=== PATIENT | female | born 1940 | race Caucasian/White ===

== ENCOUNTER 2017-10-04 22:13 | Emergency (ER) | payer OTHER ==
[2017-10-04] MEDS ORDERED: IPRATROPIUM/ALBUTEROL 3 ML DEYVIAL IH ONE (22:27)
--- NOTE | 2017-10-04 22:30 | EDPHY ---
Addendum entered and electronically signed by Trevor Brooks MD 10/05/17 22:52 : Additional info, late entry Pt to hold ADY valdovinos on the Vantin/Zithromax. Original Note: H & P <Trevor Brooks - Last Filed: 10/05/17 01:45> Source: Patient, Family Exam Limitations: No limitations - Medical/Surgical History Hx Asthma: No Hx Chronic Respiratory Disease: No Hx Diabetes: No Hx Cardiac Disease: Yes Hx Renal Disease: No Hx Cirrhosis: No Hx Alcoholism: No - Family History Significant Family History: No pertinent family hx - Social History Smoking Status: Former smoker Alcohol Use: None <Hero Vicente - Last Filed: 10/06/17 07:03> Time Seen by Provider: 10/04/17 22:21 HPI/ROS: CHIEF COMPLAINT: Cough HISTORY OF PRESENT ILLNESS: Patient is a 76-year-old female visiting from [place] with a history of mild dementia and 3 cardiac stents. She and her state that she has had a productive cough for about the last week. They just arrived to town today and when she laid flat in the motel bed her cough became so severe that she could not lay flat. No fever. No chest pain. No shortness of breath. No abdominal symptoms. She denies history of COPD or emphysema and states that she quit smoking in the s. REVIEW OF SYSTEMS: Constitutional: denies: chills, fever, recent illness, recent injury EENTM: denies: blurred vision, double vision, nose congestion Respiratory: See HPI denies: shortness of breath Cardiac: denies: chest pain, irregular heart rate, lightheadedness, palpitations Gastrointestinal/Abdominal: denies: abdominal pain, diarrhea, nausea, vomiting, blood streaked stools Genitourinary: denies: dysuria, frequency, hematuria, pain Musculoskeletal: denies: joint pain, muscle pain Skin: denies: lesions, rash, jaundice, bruising Neurological: denies: headache, numbness, paresthesia, tingling, dizziness, weakness Hematologic/Lymphatic: denies: blood clots, easy bleeding, easy bruising Immunologic/allergic: denies: HIV/AIDS, transplant EXAM: GENERAL: Well-appearing, well-nourished and in no acute distress. HEAD: Atraumatic, normocephalic. EYES: Pupils equal round and reactive to light, extraocular movements intact, sclera anicteric, conjunctiva are normal. ENT: TMs normal, nares patent, oropharynx clear without exudates. Moist mucous membranes. NECK: Normal range of motion, supple without lymphadenopathy or JVD. LUNGS: Breath sounds clear to auscultation bilaterally and equal. No wheezes rales or rhonchi. HEART: Regular rate and rhythm without murmurs, rubs or gallops. ABDOMEN: Soft, nontender, normoactive bowel sounds. No guarding, no rebound. No masses appreciated. BACK: No CVA tenderness, no spinal tenderness, step-offs or deformities EXTREMITIES: Normal range of motion, no pitting or edema. No clubbing or cyanosis. NEUROLOGICAL: Cranial nerves II through XII grossly intact. Normal speech, normal gait. 5/5 strength, normal movement in all extremities, normal sensation PSYCH: Normal mood, normal affect. SKIN: Warm, dry, normal turgor, no visible rashes or lesions. (Hero Vicente) Constitutional: Initial Vital Signs Temperature (C) 36.9 C 10/04/17 22:26 Heart Rate 96 10/04/17 22:26 Respiratory Rate 20 10/04/17 22:26 Blood Pressure 184/122 H 10/04/17 22:26 O2 Sat (%) 91 L 10/04/17 22:26 O2 Delivery Mode Room Air Allergies/Adverse Reactions: Sulfa (Sulfonamide Antibiotics) Allergy (Verified 10/04/17 22:22) Home Medications: Medication Instructions Recorded Aspirin [Aspirin 81mg (*)] 10/04/17 Atorvastatin Calcium [Lipitor 20 10/04/17 mg (*)] B-12 10/04/17 Cholecalciferol (Vitamin D3) 10/04/17 [Vitamin D3] Citalopram [CeleXA 20 MG] 10/04/17 Clopidogrel Bisulfate [Plavix] 10/04/17 Enalapril Maleate 10/04/17 Hylaronic Acid 10/04/17 Nitroglycerin Patch 10/04/17 Ranexa 10/04/17 Zinc 10/04/17 Azithromycin [Zithromax] 250 mg PO DAILY #4 tab 10/05/17 Benzonatate 200 mg PO TID PRN #28 capsule 10/05/17 Cefpodoxime Proxetil [Vantin] 200 mg PO BID #20 tab 10/05/17 Medical Decision Making - Diagnostics Imaging: I viewed and interpreted images myself <Trevor Brooks - Last Filed: 10/05/17 01:45> - Diagnostics Imaging: Discussed imaging studies w/ rn call center Radiologist <Hero Vicente - Last Filed: 10/06/17 07:03> - Diagnostics EKG Interpretation: EKG: See tracemaster. Interpreted by me contemporaneously. Rhythm: [Normal sinus rhythm.] Heart rate 102 QTc 485 QRS: Poor R-wave progression suggestive of old anterior NH. Q-waves inferiorly , suggestive of old prior inferior NH STT segment: [normal] [ ] T Waves: T flattening inferiorly. Q waves inferiorly suggestive of old inferior NH along with old poor R-wave progression Summary: Sinus tachycardia, old anterior and inferior NH. Nonspecific changes inferiorly. (Trevor Brooks) Imaging Results: Chest x-ray: Two view chest. Interpreted by radiologist, reviewed by me contemporaneously on the [employer] system.. Normal mediastinum, though heart is borderline enlarged. There is a right midle lobe silhouette sign compatible with pneumonia. Mild hyperinflation compatible with COPD. No effusions. ( Trevor Brooks) ED Course/Re-evaluation: Though there is no wheezing she received a breathing treatment in the hopes does improve her oxygen saturation. However oximetry galicia continued to have a jennifer of 89%. Fortunately blood counts were as follows: WBC normal Mild anemia hemoglobin 12.1-chronic per family Stable electrolytes. Stable renal function. Normal lactic acid I met with patient and family. Review the chest x-ray findings and recommended out hospitalization in view of the hypoxia, mild anemia, history of cardiac disease, inability asleep and visiting at altitude from sea level. However, this was really not in their plan. I did not seem to be able to convince them that it would be best and safest for sake to be hospitalized. Thereby they insisted on going home. We offered [facility] as a live pretty close to the ER here. Warned, given a cordial he please return as necessary or if 2nd thoughts. I discussed the antibiotic selection with the hospitalist director of teacher education at the [facility]. Both Levaquin and Zithromax have concerns for QTC prolongation in the use of Celexa. However though Levaquin would most likely be more efficacious than the combination of Vantin & Zithromax given the tendinopathy issues they opted for the latter. Her penicillin allergy consisted of facial swelling at age 5, though we do not know about airway swelling. Nonetheless as she does not have a history of swallowing difficulty or choking on food I would think the concern for aspiration pneumonia be quite a bit less and thus augmented would be a 3rd level choice. I asked the nursing staff to make arrange for home oxygen rule appropriate prescription for same. Discharged with tank. Appropriate risk and benefits discussed vis-a-vis trip concerns with the oxygen. She was given a dose of Tessalon Perles for her cough. Given a 2nd breathing treatment of plane Proventil as per family request. No improvement in aeration as it was pretty good in the 1st place. Oxygen levels continue to be borderline throughout the visit She received a shot of IV Rocephin as we did not have Vantin here per se and thus a carrier for the 1st 24 hr. She is also started on Zithromax 500 mg p.o. In case she plans stay longer than intended she will be giving a local physician referral, Dr. Marroquin. (Trevor Brooks) Differential Diagnosis: Diagnostic considerations include, but are not limited to, the following: URI, sinusitis, pharyngitis, otitis media, pneumonia, allergy, influenza, strep throat, hypoxia, pulmonary low-dose, DVT, CHF. (Trevor Brooks) Other Provider: Patient care assumed at 2300. Case reviewed with the initial physician, chart reviewed. Patient interviewed examined. I concur with the findings of Dr. Vicente. Further, Dr. Vicente had laid down the idea that hospitalization would likely be recommended in view of the resting O2 sat of 89% at times which would most likely be lower while sleeping. Further additional historical information is that she has had no specific exposure to preschooler that were ill. Her was ill 1st and he has since recovered. He did not require any specific management. However, while her cough has been ongoing productive though she swallows it and colors unknown. Further she has not experienced any wheezing. There has been no calf pain or calf swelling or leg edema although she did have a knee injury. This was relevant as the travels at the airport earlier today was un consequential as she was travel by wheelchair. Family is here as part of a celebration of the grandson's graduation from high school. The plan did go to a graduation tomorrow and then she would be returning on Sunday, 2 days from now, back [place]. They do note that they had visited [place] just earlier in the week and she had tolerated 7500 ft of elevation while having the cough at that point in time. They have tried a variety of [id number] cold medicines without any relief. The cough has been persistent and keeps her awake at night. In particular she was unable to sleep tonight thus they came in for evaluation. There has been no shaking chills or rigors. No prior history of CHF. Noted to have this cough but no stigmata that would consider such as a prior DVT or PEs leg swelling, or pleuritic pain. Physical exam I had my evaluation General Appearance: Alert, no distress. Afebrile. Normal phonation. No respiratory distress. Gravelly cough, though able speak in multiple sentences. Adequate color. O2 sat vacillating between 89 and 91 on room air Eyes: Pupils equal and round no pallor or injection. No icterus ENT, Mouth: Mucous membranes moist Pharynx without erythema or exudate. TM Clear. Neck: No adenopathy. Supple. No JVD. Trachea in midline. Respiratory: There are no retractions, lungs are clear to auscultation. Chest wall: Nontender to palpation. No crepitus. Cardiovascular: Regular rate and rhythm. No murmur Abdomen: Soft and nontender, no masses, bowel sounds normal. Femoral pulses equal. Neurological: Mild dementia, somewhat vague in history Skin: Warm and dry, no rashes. Musculoskeletal: No joint swelling. Extremities: No edema. Homans sign negative. No cords. No calf tenderness Psychiatric: Normal affect. Patient is oriented X 3. There is no agitation Chest x-ray reviewed by me and interpreted by radiologist contemporaneously notes a right middle lobe pneumonia. (Trevor Brooks) - Data Points Laboratory Results: Laboratory Results 10/04/17 22:57 10/04/17 22:57 Microbiology Results: MICROBIOLOGY 10/04/17 23:21 Sputum, Expectorated - Final 10/04/17 23:21 Sputum, Expectorated Sputum Culture - Final Medications Given: Discontinued Medications Albuterol/Ipratropium (Duoneb) 3 ml IH EDNOW ONE Stop: 10/04/17 22:28 Last Admin: 10/04/17 22:54 Dose: 3 ml Azithromycin (Zithromax) 500 mg PO EDNOW ONE PRN Reason: Protocol Stop: 10/05/17 00:28 Last Admin: 10/05/17 01:01 Dose: 500 mg Benzonatate (Tessalon Pearles) 300 mg PO EDNOW ONE Stop: 10/04/17 23:57 Last Admin: 10/05/17 00:05 Dose: 300 mg Ceftriaxone Sodium/Dextrose (Rocephin 1 Gm (Premix)) 50 mls @ 100 mls/hr IV EDNOW ONE PRN Reason: Protocol Stop: 10/05/17 00:56 Last Admin: 10/05/17 00:30 Dose: 50 mls Departure <Trevor Brooks - Last Filed: 10/05/17 01:45> <Hero Vicente - Last Filed: 10/06/17 07:03> - Departure Disposition: Home, Routine, Self-Care Clinical Impression: Hypoxia Pneumonia Qualifiers: Pneumonia type: due to unspecified organism Laterality: right Lung location: middle lobe of lung Qualified Code(s): J18.1 - Lobar pneumonia, unspecified organism Condition: Good Instructions: Bacterial Pneumonia (ED) Additional Instructions: I recommended hospitalization for this pneumonia given the low lung oxygen and your underlying medical problems. If you have second thoughts, then go to one of the local hospitals or come back here so we can arrange admission. There is definitely a risk of going home. However, I will work with you on this. We will be sending you home with an oxygen tank. Later in the morning a company will come out with what is known as a oxygen concentrator so as to provide continuous oxygen as this smaller tank will run out. Be certain not to tripped on the oxygen line. Do not attempt to step over this. The antibiotic was started tonight here, the next dose of both the VANTIN and the ZITHROMAX are due: In 24 hours, tomorrow evening, say 10 pm, bedtime. Tessalon works well for cough. Your given a dose tonight. See the prescription for the generic, benzonatate. Recheck here in 2-3 days or the local referral or your family doctor back home. See note for no flying in case you do not feel well enough and want to change your plans. Referrals: Patient,NotPresent [Primary Care Provider] - As per Instructions Elizabeth Marroquin MD [Medical Doctor] - 2-3 days without fail Stand Alone Forms: Airline Excuse Prescriptions: Azithromycin [Zithromax] 250 mg PO DAILY #4 tab Benzonatate 200 mg PO TID PRN #28 capsule PRN Reason: Cough Cefpodoxime Proxetil [Vantin] 200 mg PO BID #20 tab
[2017-10-04 23:07] LABS: PLATELET COUNT 293 10^3/uL (150-400)
--- NOTE | 2017-10-04 23:10 | CPEKG ---
Heart Rate: 102 RR Interval: 588 P-R Interval: 156 QRSD Interval: 94 QT Interval: 372 QTC Interval: 485 P [place]: 47 QRS [place]: -37 T Wave [place]: 1 EKG Severity - ABNORMAL ECG - EKG Impression: SINUS TACHYCARDIA EKG Impression: LEFT AXIS DEVIATION EKG Impression: CONSIDER ANTEROSEPTAL INFARCT EKG Impression: NONSPECIFIC T ABNORMALITIES, INFERIOR LEADS Electronically Signed By: Trevor Brooks 05-Oct-2017 00:05:19
[2017-10-04] MEDS ORDERED: BENZONATATE 100 MG CAP PO ONE (23:56)
[2017-10-05] MEDS ORDERED: AZITHROMYCIN 250 MG TAB PO ONE (00:27)
[2017-10-05 01:03] VITALS: BP 165/74
== END 2017-10-05 01:02 | disposition home or self-care (01) ==
LOC: CED 22:13
DX: J18.1 Lobar pneumonia, unspecified organism (principal); R09.02 Hypoxemia; Z79.82 Long term (current) use of aspirin; Z87.891 Personal history of nicotine dependence
CPT/HCPCS: 71046; 93005; 96365; 99285; J0696; 80048-PO; 83605-PO